=== PATIENT | male | born 1995 | race Caucasian/White ===

== ENCOUNTER 2020-07-12 16:28 | Emergency (ER) | payer OTHER ==
[~2020-07-12] VITALS: Ht 172.7 cm; Wt 59.9 kg
== END 2020-07-12 19:04 | disposition home or self-care (01) ==
LOC: ER 16:28
DX: M54.5 Low back pain (principal)

== ENCOUNTER 2020-09-30 19:30 | Emergency (ER) | payer OTHER ==
[~2020-09-30] VITALS: Ht 172.7 cm; Wt 61.2 kg
== END 2020-10-01 01:23 | disposition home or self-care (01) ==
LOC: ER 19:30
DX: R07.89 Other chest pain (principal)

== ENCOUNTER 2021-05-12 12:26 | Emergency (ER) | payer OTHER ==
[~2021-05-12] VITALS: Ht 172.7 cm; Wt 63.5 kg
== END 2021-05-12 13:55 | disposition home or self-care (01) ==
LOC: ER 12:26
DX: S61.421A Laceration with foreign body of right hand, initial encounter (principal); W45.0XXA Nail entering through skin, initial encounter; W26.0XXA Contact with knife, initial encounter; Y93.89 Activity, other specified; Y92.9 Unspecified place or not applicable